=== PATIENT | male | born 1960 | race Caucasian/White ===

== ENCOUNTER 2017-09-22 11:07 | Emergency (ER) | payer BC ==
[2017-09-22] MEDS ORDERED: Metoclopramide IV* 5 MG/ML 2 ML VIAL IV ONE (12:15)
[2017-09-22] MEDS ORDERED: NS 0.9% 1000 ML* 1,000 ML IV ONE (12:15)
[2017-09-22] MEDS ORDERED: diPHENhydraMINE IV* 50 MG/ML 1 ml VIAL (BENADRYL) IV ONE (12:15)
[2017-09-22] MEDS: Ketorolac INJ* 30 MG/ML 1 ML VIAL IV PUSH ONE ×2 (12:47→12:56)
[2017-09-22 13:44] VITALS: BP 153/95
--- NOTE | 2017-09-22 17:55 | ED ---
Geraldo Arenas Gabriel, scribed for Henri Irwin MD on 09/22/17 at 1215 . Headache - HPI Summary HPI Summary: This patient is a 56 year old M presenting to [facility] with a chief complaint of SWANSON since 2 weeks ago. The patient rates the pain 6/10 in severity located behind the left eye. Patient reports tearing and tingling in the right pinky. Patient denies cough, congestion, sinus pressure, nasal discharge, and pain with eye movement. Hx of migraines with the last one being 2 years ago. - History Of Current Complaint Chief Complaint: EDHeadache Stated Complaint: HEADACHE Time Seen by Provider: 09/22/17 12:05 Hx Obtained From: Patient Onset/Duration: Started weeks ago - 2, Still Present Initially Headache Was: Initial Pain Scale(0-10)= - 6 Currently Pain Is: Current Pain Scale(0-10)= - 6 Timing: Constant Location of Headache: Other: - behind left eye Associated Signs And Symptoms: Negative - cough, congestion, sinus pressure, nasal discharge, and pain with eye movement. - Allergies/Home Medications Allergies/Adverse Reactions: Allergies Allergy/AdvReac Type Severity Reaction Status Date / Time Penicillins Allergy Unknown Verified 12/04/13 13:38 Reaction Details PMH/Surg Hx/FS Hx/Imm Hx Respiratory History: Reports: Hx Sleep Apnea - evaluation for 11/2013 GI History: Reports: Hx Gastroesophageal Reflux Disease - erosive gastritis, Schatzki's ring History: Reports: Other Problems/Disorders - prostrate adenocarcinoma - claudine 6 Opthamlomology History: Denies: Hx Legally Blind Neurological History: Reports: Hx Headaches, Hx Migraine - Cancer History Cancer Type, Location and Year: prostrate adenocarcinoma - Immunization History Date of Influenza Vaccine: never Infectious Disease History: No Infectious Disease History: Denies: Traveled Outside the [place] in Last 30 Days - Family History Known Family History: Negative: Renal Disease, Respiratory Disease, Blood Disorder - Social History Lives: With Family Alcohol Use: Daily Alcohol Amount: 4-6 beers, weekends more Substance Use Type: Reports: None Smoking Status (MU): Never Smoked Tobacco Review of Systems Eyes: Negative - pain with eye movement Positive: Other - tearing ENT: Negative - sinus pressure Negative: Nasal Discharge Respiratory: Negative - congestion Negative: Cough Neurological: Other - tingling in right pinky Positive: Headache All Other Systems Reviewed And Are Negative: Yes Physical Exam - Summary Physical Exam Summary: Appearance: Well appearing, no pain distress Skin: warm, dry, reflects adequate perfusion Head/face: normal Eyes: EOMI, SILVANO ENT: Globes are soft. No pain with percussion of sinuses Neck: supple, non-tender Respiratory: CTA, breath sounds present Cardiovascular: RRR, pulses symmetrical Abdomen: non-tender, soft Bowel: present Musculoskeletal: normal, strength/ROM intact Neuro: normal, sensory motor intact, A&Ox3 Triage Information Reviewed: Yes Vital Signs On Initial Exam: Initial Vitals Temp Pulse Resp BP Pulse Ox 98.1 F 82 18 124/86 98 09/22/17 11:10 09/22/17 11:10 09/22/17 11:10 09/22/17 11:10 09/22/17 11:10 Vital Signs Reviewed: Yes Diagnostics - Vital Signs Vital Signs Temp Pulse Resp BP Pulse Ox 09/22/17 11:10 98.1 F 82 18 124/86 98 - Laboratory Lab Statement: Any lab studies that have been ordered have been reviewed, and results considered in the medical decision making process. Re-Evaluation - Re-Evaluation First Eval Re-Evaluation Time: 13:17 Change: Improved Comment: Pt's headache has resolved. Headache Course/Dx - Course Course Of Treatment: pt with recurring swanson behind L eye. No neuro sx. SWANSON gone with tx. Suggested outpt MRI and neurology consult. Referral given. Neuro intact here. No high risk features. - Diagnoses Provider Diagnoses: Chronic headaches, Cluster headache Discharge - Discharge Plan Condition: Good Disposition: HOME Prescriptions: Promethazine TAB* [Phenergan Tab*] 25 mg PO Q6H PRN #30 tab PRN Reason: headache/nausea Patient Education Materials: Cluster Headache (ED) Referrals: Ted Alejo MD [Medical Doctor] - Alfredo Seo JEWELRY ENGRAVER [Primary Care Provider] - Additional Instructions: Drink plenty of fluids. Prescribed medication can be taken with ibuprofen/ benadryl, water and caffeine if severe. Medication can be sedating. Return with fever, numbness/weakness, new symptoms, worse or other concerns as discussed. Call neurology for follow up appt. The documentation as recorded by the Geraldo rivers Gabriel accurately reflects the service I personally performed and the decisions made by me, Henri Irwin MD.
== END 2017-09-22 13:42 | disposition home or self-care (01) ==
LOC: ED 11:07
DX: G44.009 Cluster headache syndrome, unspecified, not intractable (principal); R51 Headache
CPT/HCPCS: 96374; 96375; 99283; J1200; J1885; J2765

== ENCOUNTER 2018-04-04 11:18 | Emergency (ER) | payer BC ==
--- OUTSIDE RECORDS SUMMARY | 2018-04-04 11:30 | XMS REPORT ---
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 [address] PayID: [id number] [place] [address] Problems Date Description Provider Status Onset: 09/29/2011 Migraine Myla Santiago M.D. Active Family History Date Family Member(s) Problem(s) Comments Father Cancer, Prostate Father Dementia Mother Healthy Onset: (age 49 First Brother Prostate Cancer prostatecomy Years) Second Brother Well Third Brother GERD First Sister Lupus Erythematosis Paternal Grandfather due to "Old Age" () Paternal Grandmother due to after () fractured hip Maternal Grandfather due to "Old Age" () Maternal Grandmother Healthy Maternal Grandmother due to "Old Age" () Social History Type Date Description Comments Marital Status Lives With Spouse Lives With Son 2 boys at home Lives With Daughter lives in [place] Diet Healthy, Well Balanced likes salads and fruits but tends to eat diner foods, lots of grease Smoke-Free Home is smoke-free Occupation [employer]. 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 Storm, every ACCOUNTING COORDINATOR-C night at bedtime for migrain e prevent ion Qnasl 10/06 Active Aerosol 80mcg/Act 8.700 2 J01.90 Shawnti gm sprays R. Rayray, each ACCOUNTING COORDINATOR-C nostril daily Sumatriptan 10/06 Active Tablets 100mg 14tab take 1 G44.011 Shawnti Succinate s tablet R. Rayray, by ACCOUNTING COORDINATOR-C mouth at onset of migrain e; may repeat in 1 to 2 hours if needed; max daily dose is 2 tabs Clarithromycin 09/29 Hx Tablets 500mg 20tab 1 by J01.90 Shawnti s mouth R. Storm, - twice a ACCOUNTING COORDINATOR-C 10/09 day sinusit is Fluticasone 09/29 Hx Suspensio 50mcg/Act 16gm 2 J01.90 Shawnti Propionate n sprays RGalileo Seo, - into ACCOUNTING COORDINATOR-C 10/06 nostril once daily for rhiniti s No Active 01/25 Hx Unknown Medications /2016 - 09/29 Bactrim DS 04/03 Hx Tablets 800-160mg 20tab 1 by Shawnti s mouth R. Storm, - twice a ACCOUNTING COORDINATOR-C 04/13 day infecti on Clindamycin HCL 03/09 Hx Capsules 300mg 21cap take 1 K12.2 Ah s capsule Germania - by KATHRYN 01/25 mouth ACCOUNTING COORDINATOR-C /2016 every 8 hours for 7 days Fenofibrate 01/18 Hx Tablets 54mg 30tab 1 by E78.1 Daniel s mouth Shirley huston MD 01/25 day Naltrexone HCL 01/18 Hx Tablets 50mg 30tab Take 1 R74.0 Daniel s tablet Shirley hoffman MD 01/25 mouth daily for excessi ve use of alcohol Triamcinolone 12/18 Hx Cream 0.1% 120un 1 apply Daniel Acetonide its to Shirley klein MD 01/25 d area daily Meclizine HCL 11/14 Hx Tablets 12.5mg 40tab take H81.10 s 1-2 R. Rayray, - tablets ACCOUNTING COORDINATOR-C 11/14 by mouth twice to four times a day as needed for dizzine ss/vert igo Meclizine HCL 11/14 Hx Tablets 25mg 30tab 1 H81.10 s tablet R. Rayray, - PO qid ACCOUNTING COORDINATOR-C 01/25 prn dizzine ss Clarithromycin 10/27 Hx Tablets 500mg 20tab 1 by J01.90 s mouth R. Storm, - twice a ACCOUNTING COORDINATOR-C 11/06 day sinusit is Clarithromycin 09/12 Hx Tablets 500mg 20tab 1 by J01.20 s mouth R. Storm, - twice a ACCOUNTING COORDINATOR-C 10/27 day sinusit is Sumatriptan 09/12 Hx Solution 20mg/Act 2unit one G43.119 s spray RGalileo Seo, - in one ACCOUNTING COORDINATOR-C 01/25 nostril at the onset of migrain e, repeat in 2 hours if needed, max 2 doses in 24 hours Doxycycline 06/30 Hx Tablets 100mg 2tabs [address] by Shirley oconnor MD 09/12 once Guaiatussin ac 01/28 Hx Syrup 100-10mg/5ML 150ml 1-2 tsp J06.9 po q4-6 Barbara Seo, - hr prn ACCOUNTING COORDINATOR-C 01/25 cough Prednisone 05/03 Hx Tablets 20mg QS 3 po qd 466.0 x Barbara Seo, - 2days, ACCOUNTING COORDINATOR-C 01/25 2 po qd /2013 x 2 days, 1 po qd x 2 days, 1/2 po qd x 2 days Ventolin HFA 05/03 Hx Aerosol 108(90Base) 18gm inhale 466.0 nt mcg/Act two Barbara Rayray, - puffs ACCOUNTING COORDINATOR-C 01/25 by mouth every 4 hours as needed for wheeze Azithromycin 04/17 Hx Tablets 250mg 6tabs take 2 786.50 Nereida tablets Rita, - today ACCOUNTING COORDINATOR-C 05/03 then tablet daily for the next 4 days Cipro 02/03 Hx Tablets 500mg 20tab one po s bid for Cohen, - 10 days M.D. 05/04 Amitriptyline 10/04 Hx Tablets 25mg 90tab 1 po 346.90 Shawnti HCL s qhs to Barbara Seo, - prevent ACCOUNTING COORDINATOR-C 01/25 migrain /2016 es Azithromycin 09/29 Hx Tablets 250mg 6tabs 2 po qd 461.8 x 1 K.W. - Jack ashford, 11/29 then 1 .D. 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 - latera Jack, 09/13 wall M.D. pain after contusi on. Ibuprofen 05/12 Hx Tablets 600mg 30tab one po 922.1 s tab tid K.W. - with Jack 09/29 food M.D. for 5 days two days off the 5 days No Lifting Or 05/12 Hx 2Weeks Chest 922.1 Myla Raising Left wall K.WGalileo Arm Above - contusi Jack, Shoulder 09/29 on M.D. Lamisil At 02/17 Hx Cream 1% 1unit apply 110.4 Myla Athletes Foot s bid to Zelda Santiago, 11/29 d toes M.D. /2011 Indomethacin 02/17 Hx Capsules 25mg 6caps one tab 274.00 po tid Zelda - day x 2 Jack, 09/29 days M.D. with food Propranolol 02/06 Hx Tablets 20mg 90tab 1 po Alejandra s bid Bhavna Sepulveda M.D., 09/29 R.D. Fluticasone 02/06 Hx Suspensio 50mcg/Act 1unit one Propionate n s spray Zelda - ramona Santiago, 01/25 nostril M.D. bid O2 Via 10/13 Hx 8-10Liter Use for Echo Non-Rebreather Per Min 5-10 A. Mask - mins Tayo, 09/29 at a [facility].N.P.C. time for cluster headach es Verapamil HCL 10/08 Hx Tablets 80mg 90tab 1 po 784.0 Echo s tid A. - Tayo, 09/29 [facility].N.P.C. Sumatriptan 10/02 Hx Tablets 100mg 30tab 1 at R51 Shawnti Succinate s onset Barbara Seo, - of ACCOUNTING COORDINATOR-C 01/25 headach /2016 e, may repeat in 1 hour. mmd is 2 in 24 hours. Topamax 07/24 Hx Tablets 25mg 84tab 1 PO qd 346.10 Echo s For One A. - Week, Tayo, 10/04 Increas F.N.P.C. e To 3 Tabs PO qd For One Week Then 2 Tabs bid. Prilosec OTC 07/03 Hx Tablets 20mg 30tab [address] martin Santiago, 09/29 M.D. Lotrisone 09/14 Hx Cream Cream 15gm Apply 692.6 Echo /2006 To The AGalileo Cr, 09/29 d Area [facility].N.P.C. bid Triamcinolone 06/21 Hx Cream 0.1% 30Gra Apply Velma Acetonide /2006 ms qd To P. - bid To Blegen, 01/17 Poison M.D. /2007 Ana Rash For Up To 2 Weeks (Gary d) Prednisone 04/06 Hx Tablets 10mg 30QS 5 po qd Myla x 2 K.W. - days Jack, 01/17 then 4 M.D. po qd x 2 days then 3 po qd x 2 days then 2 po [id number] s then 1 po [id number] s Topamax 09/16 Hx Capsules 25mg 61cap one po 346.00 Echo /2004 s qd for A. - 5 days 01/17 then [facility].N.P.C. /2007 increas e to one cap bid for one week. third week two caps at hs and one in the daytime Migranal Nasal 09/16 Hx Solution 4mg/ml 1unit one 346.00 Echo [place] /2004 s spray A. - in each 01/17 notsril [facility].N.P.C. /2007 . may repeat in 15 mins max 4 sprays in 24 hours/8 per week Propranolol 01/05 Hx Tablets 20mg 90tab 1 po Echo s bid for A. - one 09/16 week [facility].N.P.C. /2004 then increas e to two tabs po bid. Amitriptyline 12/18 Hx Tablets 25mg 60tab one to 346.00 Echo s two A. - tabs po 09/16 at hs [facility].N.P.C. /2004 Viagra 12/18 Hx Tablets 50mg One PO 302.72 Echo 30 Mins A. - Before 01/17 Interco F.N.P.C. /2007 urse Zithromax 10/16 Hx Tablets 250mg 6tabs 2 On Day Bhavna Chapman M.D. 12/10 One qd X4 Days Robitussin A-C 10/16 Hx Syrup 4Oz 1-2 TSP Q4H prn Bhavna Chapman M.D. 12/10 Axert 08/04 Hx 12.5mg 6unit use 1 Echo s tab prn A. - headach Tayo, 01/17 e, may [facility].N.P.C. /2007 repeat in 2 hours, not more than 2 in 24hrs. Dhe 45 07/27 Hx 1mg/ml 2unit adminis 346.10 Echo /[address] at A. - first Tayo, 10/04 sign of [facility].N.P.C. /2011 migrain e. given im or sc. give one ml, may repeat every one hour for three hours.m ax weekly Syringes 3cc 07/27 Hx 12uni use as 346.00 Myla 25G 1In [place] /2001 ts directe Zelda Santiago, 01/17 M.DGalileo /2007 Immunizations CPT Code Status Date Vaccine Lot # [id number] Given 10/04/2011 Tdap (Adacel) [id number] Given 07/03/2008 Influenza Virus Vaccine, 3 Yrs And Above [id number] Given 06/03/1993 DT (Adult) [id number] Refused 01/19/2016 Influenza Virus Vaccine, Quadrivalent, 3 Yr > Quad , Preserv Free Vital Signs Date Vital Result Comment 04/04/2018 Weight 151.00 lb Weight in kg's 68.494 BP Systolic 120 mmHg BP Diastolic 80 mmHg Heart Rate 68 /min Body Temperature 98.1 F Respiratory Rate 16 /min 12/26/2017 Weight 155.00 lb Weight in kg's 70.308 BP Systolic 114 mmHg BP Diastolic 82 mmHg Heart Rate 100 /min Body Temperature 101.5 F ibuprofen am Respiratory Rate 18 /min O2 % BldC Oximetry 98 % 10/06/2017 Weight 151.00 lb Weight in kg's 68.494 BP Systolic 130 mmHg BP Diastolic 78 mmHg Heart Rate 88 /min Body Temperature 96.9 F Respiratory Rate 16 /min O2 % BldC Oximetry 98 % 09/29/2017 Weight 156.00 lb Weight in kg's 70.762 BP Systolic 128 mmHg BP Diastolic 80 mmHg Heart Rate 90 /min Body Temperature 97.5 F Respiratory Rate 16 /min O2 % BldC Oximetry 98 % 01/25/2017 Weight 147.00 lb Weight in kg's 66.679 BP Systolic 140 mmHg BP Diastolic 70 mmHg Heart Rate 107 /min Body Temperature 98.7 F Respiratory Rate 16 /min Height 70.5 inches 5'10.50" BMI (Body Mass Index) 20.8 kg/m2 O2 % BldC Oximetry 98 % 09/23/2016 Weight 149.00 lb Weight in kg's 67.586 BP Systolic 100 mmHg BP Diastolic 78 mmHg Heart Rate 108 /min Body Temperature 98.2 F Ibuprofen at 10am Respiratory Rate 16 /min O2 % BldC Oximetry 99 % 03/09/2016 Weight 149.00 lb Weight in kg's 67.586 BP Systolic 124 mmHg BP Diastolic 86 mmHg Heart Rate 104 /min Body Temperature 98.7 F 01/19/2016 Weight 153.00 lb Weight in kg's 69.401 BP Systolic 130 mmHg BP Diastolic 88 mmHg Heart Rate 76 /min 12/19/2015 Weight 155.00 lb Weight in kg's 70.308 BP Systolic 136 mmHg BP Diastolic 90 mmHg Heart Rate 84 /min Body Temperature 99.2 F 11/14/2015 Weight 151.00 lb Weight in kg's 68.494 BP Systolic 160 mmHg BP Diastolic 100 mmHg Heart Rate 99 /min Body Temperature 97.6 F O2 % BldC Oximetry 98 % 10/27/2015 Weight 155.00 lb Weight in kg's 70.308 BP Systolic 141 mmHg BP Diastolic 92 mmHg Heart Rate 88 /min Body Temperature 97.7 F O2 % BldC Oximetry 98 % 09/12/2015 Weight 154.00 lb Weight in kg's 69.854 BP Systolic 140 mmHg BP Diastolic 90 mmHg Heart Rate 80 /min Body Temperature 98.1 F O2 % BldC Oximetry 98 % 06/30/2015 Weight 152.00 lb Weight in kg's 68.947 BP Systolic 140 mmHg BP Diastolic 82 mmHg Heart Rate 72 /min Body Temperature 97.5 F 01/28/2014 Weight 150.00 lb Weight in kg's 68.040 BP Systolic 130 mmHg BP Diastolic 98 mmHg Heart Rate 84 /min Body Temperature 98.9 F O2 % BldC Oximetry 99 % AT Room Air 01/25/2014 Weight 150.00 lb Weight in kg's 68.040 BP Systolic 144 mmHg BP Diastolic 90 mmHg Heart Rate 92 /min Body Temperature 98.3 F O2 % BldC Oximetry 99 % Ra 07/16/2013 Weight 152.00 lb Weight in kg's 68.947 BP Systolic 140 mmHg BP Diastolic 90 mmHg Heart Rate 100 /min 05/17/2013 Weight 150.00 lb Weight in kg's 68.040 BP Systolic 140 mmHg BP Diastolic 90 mmHg Heart Rate 92 /min 05/03/2013 Weight 149.00 lb Weight in kg's 67.586 BP Systolic 130 mmHg BP Diastolic 90 mmHg Heart Rate 76 /min Body Temperature 98.6 F O2 % BldC Oximetry 99 % level at rest 04/17/2013 Weight 147.00 lb Weight in kg's 66.679 BP Systolic 126 mmHg BP Diastolic 82 mmHg Heart Rate 77 /min Body Temperature 98.0 F Height 72 inches 6'0" BMI (Body Mass Index) 19.9 kg/m2 O2 % BldC Oximetry 99 % 02/04/2012 Weight 159.00 lb Weight in kg's 72.122 BP Systolic 120 mmHg BP Diastolic 92 mmHg Heart Rate 80 /min 11/30/2011 Weight 155.00 lb Weight in kg's 70.308 BP Systolic 124 mmHg BP Diastolic 90 mmHg Heart Rate 96 /min Body Temperature 97.3 F Height 72 inches 6'0" BMI (Body Mass Index) 21.0 kg/m2 11/04/2011 Weight 161.00 lb Weight in kg's 73.030 BP Systolic 138 mmHg BP Diastolic 80 mmHg Heart Rate 84 /min Body Temperature 99.6 F 10/04/2011 Weight 158.00 lb Weight in kg's 71.669 BP Systolic 120 mmHg BP Diastolic 80 mmHg Heart Rate 88 /min Height 71.50 inches 5'11.50" BMI (Body Mass Index) 21.7 kg/m2 09/29/2011 Weight 159.00 lb Weight in kg's 72.122 BP Systolic 120 mmHg BP Diastolic 80 mmHg Heart Rate 84 /min Body Temperature 98.7 F 08/23/2011 Weight 160.00 lb Weight in kg's 72.576 BP Systolic 122 mmHg BP Diastolic 82 mmHg Heart Rate 64 /min Last Menstrual Period 0 O2 % BldC Oximetry 98 % 05/12/2010 Weight 164.00 lb Weight in kg's 74.390 BP Systolic 140 mmHg BP Diastolic 90 mmHg Heart Rate 72 /min Body Temperature 97.6 F 02/17/2010 Weight 163.00 lb Weight in kg's 73.937 BP Systolic 140 mmHg BP Diastolic 94 mmHg Heart Rate 60 /min Body Temperature 98.5 F 02/06/2010 Weight 162.00 lb Weight in kg's 73.483 BP Systolic 148 mmHg BP Diastolic 98 mmHg Heart Rate 76 /min Height 71.50 inches 5'11.50" BMI (Body Mass Index) 22.3 kg/m2 O2 % BldC Oximetry 99 % 10/08/2009 Weight 161.00 lb Weight in kg's 73.030 BP Systolic 118 mmHg BP Diastolic 84 mmHg Heart Rate 80 /min 10/02/2009 Weight 160.00 lb Weight in kg's 72.576 BP Systolic 142 mmHg BP Diastolic 90 mmHg Heart Rate 68 /min 03/05/2009 Weight 165.00 lb Weight in kg's 74.844 BP Systolic 140 mmHg BP Diastolic 100 mmHg Heart Rate 68 /min 07/24/2008 Weight 161.00 lb Weight in kg's 73.030 BP Systolic 118 mmHg BP Diastolic 80 mmHg Heart Rate 72 /min Body Temperature 96.9 F Height 72 inches 6'0" BMI (Body Mass Index) 21.8 kg/m2 07/08/2008 Weight 164.00 lb Weight in kg's 74.390 BP Systolic 110 mmHg BP Diastolic 68 mmHg Heart Rate 76 /min Height 72 inches 6'0" BMI (Body Mass Index) 22.2 kg/m2 06/17/2008 BP Systolic 120 mmHg BP Diastolic 60 mmHg Heart Rate 72 /min Body Temperature 98.0 F oral Height 72 inches 6'0" 02/26/2008 Weight 164.00 lb Weight in kg's 74.390 BP Systolic 120 mmHg BP Diastolic 60 mmHg Heart Rate 72 /min Height 72 inches 6'0" BMI (Body Mass Index) 22.2 kg/m2 01/18/2008 Weight 166.00 lb Weight in kg's 75.298 BP Systolic 132 mmHg BP Diastolic 84 mmHg Heart Rate 76 /min Height 72 inches 6'0" BMI (Body Mass Index) 22.5 kg/m2 01/16/2008 Weight 166.00 lb Weight in kg's 75.298 BP Systolic 138 mmHg BP Diastolic 70 mmHg Heart Rate 76 /min Body Temperature 97.2 F Height 72 inches 6'0" BMI (Body Mass Index) 22.5 kg/m2 09/14/2007 Weight 166.00 lb Weight in kg's 75.298 BP Systolic 139 mmHg BP Diastolic 82 mmHg Heart Rate 64 /min Height 72 inches 6'0" BMI (Body Mass Index) 22.5 kg/m2 04/06/2007 Weight 163.00 lb Weight in kg's 73.937 BP Systolic 130 mmHg BP Diastolic 68 mmHg Heart Rate 72 /min Height 72 inches 6'0" BMI (Body Mass Index) 22.1 kg/m2 10/13/2006 Weight 160.00 lb Weight in kg's 72.576 BP Systolic 130 mmHg BP Diastolic 72 mmHg Heart Rate 68 /min Height 72 inches 6'0" BMI (Body Mass Index) 21.7 kg/m2 10/04/2005 Weight 157.00 lb Weight in kg's 71.215 BP Systolic 140 mmHg BP Diastolic 100 mmHg Heart Rate 76 /min Respiratory Rate 18 /min Height 72 inches 6'0" BMI (Body Mass Index) 21.3 kg/m2 09/16/2005 Weight 156.00 lb Weight in kg's 70.762 BP Systolic 106 mmHg BP Diastolic 74 mmHg Body Temperature 98.2 F 12/19/2003 Weight 167.00 lb Weight in kg's 75.751 BP Systolic 136 mmHg BP Diastolic 84 mmHg Heart Rate 82 /min Body Temperature 96.8 F 12/09/2003 Weight 165.00 lb Weight in kg's 74.844 BP Systolic 140 mmHg BP Diastolic 82 mmHg Heart Rate 88 /min 11/18/2003 Weight 166.00 lb Weight in kg's 75.298 BP Systolic 140 mmHg BP Diastolic 82 mmHg Body Temperature 97.1 F 12/17/2002 Weight 159.00 lb Weight in kg's 72.122 BP Systolic 120 mmHg BP Diastolic 80 mmHg Heart Rate 78 /min Respiratory Rate 18 /min Height 72 inches BMI (Body Mass Index) 21.6 kg/m2 10/16/2002 Weight 158.00 lb Weight in kg's 71.7 BP Systolic 120 mmHg BP Diastolic 70 mmHg Body Temperature 97.6 F 07/27/2002 Weight 160.00 lb Weight in kg's 72.6 BP Systolic 130 mmHg BP Diastolic 80 mmHg Heart Rate 72 /min Results Test Date Test Result H/L Range Note Laboratory test 12/26/2017 Flu PCR Flu B--Positive Flu finding A--Negative CBC Auto Diff 01/25/2017 White Blood 9.3 10^3/uL 3.5-10.8 Count Red Blood Count 4.63 10^6/uL 4.0-5.4 Hemoglobin 15.3 g/dL 14.0-18.0 Hematocrit 45 % 42-52 Mean Corpuscular Volume 98 fL High 80-94 Mean Corpuscular Hemoglobin 33 pg High 27-31 Mean Corpuscular HGB Conc 34 g/dL 31-36 Red Cell Distribution Width 13 % 10.5-15 Platelet Count 332 10^3/uL 150-450 Mean Platelet Volume 8 um3 7.4-10.4 Abs Neutrophils 5.3 10^3/uL 1.5-7.7 Abs Lymphocytes 2.9 10^3/uL 1.0-4.8 Abs Monocytes 0.8 10^3/uL 0-0.8 Abs Eosinophils 0.2 10^3/uL 0-0.6 Abs Basophils 0.1 10^3/uL 0-0.2 Abs Nucleated RBC 0 10^3/uL Granulocyte % 57.6 % 38-83 Lymphocyte % 31.7 % 25-47 Monocyte % 8.2 % 1-9 Eosinophil % 1.7 % 0-6 Basophil % 0.8 % 0-2 Nucleated Red Blood Cells % 0.1 Comp Metabolic Panel 01/25/2017 Sodium 135 mmol/L 133-145 Potassium 4.0 mmol/L 3.5-5.0 Chloride 102 mmol/L 101-111 Co2 Carbon Dioxide 23 mmol/L 22-32 Anion Gap 10 mmol/L 2-11 Glucose 114 mg/dL High 70-100 Blood Urea Nitrogen 11 mg/dL 6-24 Creatinine 0.95 mg/dL 0.67-1.17 BUN/Creatinine Ratio 11.6 8-20 Calcium 9.3 mg/dL 8.6-10.3 Total Protein 7.2 g/dL 6.4-8.9 Albumin 4.3 g/dL 3.2-5.2 Globulin 2.9 g/dL 2-4 Albumin/Globulin Ratio 1.5 1-3 Total Bilirubin 1.10 mg/dL High 0.2-1.0 Alkaline Phosphatase 52 U/L 34-104 Alt 27 U/L 7-52 Ast 32 U/L 13-39 Egfr Non- 82.0 >60 Egfr 105.5 >60 1 Lipid Profile (Trig/Chol/HDL) 01/25/2017 Triglycerides 311 mg/dL 2 Cholesterol 219 mg/dL 3 HDL Cholesterol 60.8 mg/dL 4 LDL Cholesterol 96 mg/dL 5 Laboratory test finding 01/25/2017 Hepatitis C Antibody Nonreactive Nonreactive 6 PSA Screening 0.019 ng/mL 0-4.000 7 Flu Test A, B, Or A & B,Binaxn 09/23/2016 Influenza A Antigen <pending> Influenza B Antigen <pending> Lipid Profile (Trig/Chol/HDL) 02/09/2016 Triglycerides 389 mg/dL 8 Cholesterol 241 mg/dL 9 HDL Cholesterol 60.8 mg/dL 10 LDL Cholesterol 102 mg/dL 11 Comp Metabolic Panel 02/09/2016 Sodium 138 mmol/L 133-145 Potassium 4.8 mmol/L 3.5-5.0 Chloride 103 mmol/L 101-111 Co2 Carbon Dioxide 26 mmol/L 22-32 Anion Gap 9 mmol/L 2-11 Glucose 110 mg/dL High 70-100 Blood Urea Nitrogen 11 mg/dL 6-24 Creatinine 1.17 mg/dL 0.67-1.17 BUN/Creatinine Ratio 9.4 8-20 Calcium 9.8 mg/dL 8.6-10.3 Total Protein 7.6 g/dL 6.4-8.9 Albumin 4.6 g/dL 3.2-5.2 Globulin 3.0 g/dL 2-4 Albumin/Globulin Ratio 1.5 1-3 Total Bilirubin 0.50 mg/dL 0.2-1.0 Alkaline Phosphatase 48 U/L 34-104 Alt 43 U/L 7-52 Ast 50 U/L High 13-39 Egfr Non- 64.7 >60 Egfr 83.2 >60 12 Laboratory test finding 02/09/2016 GGTP 204 U/L High 9-64.0 13 Laboratory test finding 07/16/2013 PSA Diagnostic < 0.008 ng/mL 0-4.000 14 Surgical Pathology 01/31/2013 S RUN DATE: <SEE NOTE> Urine Culture & Sensitivi 02/04/2012 M 16 <SEE NOTE> Urine DIP 02/04/2012 Leukocytes NEG Neg Urine Nitrites NEG Neg Urine pH 5 5-6 Total Protein, Urine NEG Neg Urine Glucose NORM Norm Urine Ketones NEG Neg Urobilinogen NORM Norm Urine Bilirubin NEG Neg Urine Blood NEG Neg Specific [place] N/A Low 1.01-1.02 CBC Auto Diff 11/30/2011 White Blood Count 6.1 CUMM 4.8-10.8 17 Red Cell Count 4.29 CUMM Low 4.6-6.2 17 Hemoglobin 14.3 g/dL 14.0-18.0 17 Hematocrit 40 % Low 42-52 17 Mean Corpuscular Volume 93 um3 80-94 17 Mean Corpuscular Hemoglob 33 pg High 27-31 17 Mean Corpuscular HGB Cone 36 g/dL 32-36 17 Redcell Distribution WDTH 14 % 10.5-15 17 Platelet Count 297 CUMM 150-450 17 Mean Platelet Volume 8.4 um3 7.4-10.4 17 Gran % 46.7 % 38-83 17 Lymph % 39.6 % 25-47 17 Mononuclear % 8.4 % 1-9 17 Eosinophil % 4.7 % 0-6 17 Basophil % 0.6 % 0-2 17 Abs Lymphs 2.4 1.0-4.8 17 Abs Mononuclear 0.5 0-0.8 17 Absolute Neutrophil Count 2.9 1.5-7.7 17 Abs Eosinophils 0.3 0-0.6 17 Abs Basophils 0 0-0.2 17 Comp Metabolic Panel 11/30/2011 Sodium 137 mmol/L 135-145 17 Potassium 4.8 mmol/L 3.5-5.0 17 Chloride 103 mmol/L 101-111 17 Co2 (Carbon Dioxide) 24.0 mmol/L 22-32 17 Anion Gap 10.0 mmol/L 2-11 17, 18 Glucose 83 mg/dL 70-100 17 BUN 16 mg/dL 6-24 17 Creatinine 1.1 mg/dL 0.50-1.40 17 One Over Creatinine 0.90 17 BUN/Creatinine Ratio 14.5 8-20 17 Calcium 9.5 mg/dL 8.1-9.9 17 Total Protein 6.9 GM/DL 6.2-8.1 17 Albumin 3.7 GM/DL 3.6-5.4 17 Globulin 3.2 GM/DL 2-4 17 Albumin/Globulin Ratio 1.2 1-3 17 Bilirubin Total 0.9 mg/dL 0.4-1.5 17, 19 Alkaline Phosphatase 40 U/L 39-117 17 Alt (SGPT) 26 U/L 17-63 17 Ast (Sgot) 32 U/L 12-42 17 eGFR Non- 70.6 > 60 17 eGFR 90.8 > 60 17, 20 Urine DIP 11/30/2011 Leukocytes NEG Neg Urine Nitrites NEG Neg Urine pH 6 5-6 Total Protein, Urine TRACE Neg Urine Glucose NORM Norm Urine Ketones NEG Neg Urobilinogen NORM Norm Urine Bilirubin NEG Neg Urine Blood NEG Neg Specific [place] NA Low 1.01-1.02 Urinalysis W/Microscopic 11/30/2011 Ua Color YELLOW Yellow Appearance-Urine TURBID Clear Specific [place]-Ur 1.021 1.010-1.030 Esterase-Urine NEGATIVE Negative Nitrite NEGATIVE Negative [id number] NEGATIVE Negative Protein-Urine NEGATIVE Negative PH-Urine 6.0 5-9 Blood-Urine NEGATIVE Negative Ketones-Urine NEGATIVE Negative Bilirubin-Ur NEGATIVE Negative Glucose-Urine NEGATIVE Negative WBC-Urine 0-2 0-5 RBC-Urine NONE SEEN 0-2 Epith Cells-Ur FEW None Amorphous Sed-U 2+ None PT W/Inr 11/30/2011 Inr 0.98 0.88-1.13 17, 21 Protime 11.5 SEC 10.3-13.5 17, 22 Urine Culture 11/30/2011 M <SEE 23 Sensitivi NOTE> Surgical Pathology 11/02/2011 Surgical <SEE 24 Pathology NOTE> Laboratory test 10/04/2011 Glucose 101 mg/dL High 70-100 finding Hemoglobin A1c 5.7 % Less Than 6.0 25 Urine DIP 10/04/2011 Leukocytes NEG Neg Urine Nitrites NEG Neg Urine pH 5 5-6 Total Protein, Urine NEG Neg Urine Glucose NORM Norm Urine Ketones NEG Neg Urobilinogen NORM Norm Urine Bilirubin NEG Neg Urine Blood NEG Neg Specific [place] N/A Low 1.01-1.02 Basic Metabolic Panel 09/28/2011 Sodium 134 mmol/L Low 135-145 Potassium 5.0 mmol/L 3.5-5.0 Chloride 98 mmol/L Low 101-111 Co2 (Carbon Dioxide) 25.0 mmol/L 22-32 Anion Gap 11.0 mmol/L 2-11 26 Glucose 150 mg/dL High 70-100 BUN 9 mg/dL 6-24 Creatinine 1.1 mg/dL 0.50-1.40 One Over Creatinine 0.90 BUN/Creatinine Ratio 8.2 8-20 Calcium 9.5 mg/dL 8.1-9.9 eGFR Non- 70.9 > 60 eGFR 91.1 > 60 27 CBC With Electronic Diff 09/28/2011 White Blood Count 8.9 CUMM 4.8-10.8 Red Cell Count 5.06 CUMM 4.6-6.2 Hemoglobin 16.3 g/dL 14.0-18.0 Hematocrit 47 % 42-52 Mean Corpuscular Volume 94 um3 80-94 Mean Corpuscular Hemoglob 32 pg High 27-31 Mean Corpuscular HGB Cone 34 g/dL 32-36 Redcell Distribution WDTH 13 % 10.5-15 Platelet Count 285 CUMM 150-450 Mean Platelet Volume 8.3 um3 7.4-10.4 Laboratory test finding 09/28/2011 TSH 2.05 MIU/ML 0.34-5.60 Manual Differential 09/28/2011 Polysegmented Neutrophil 48 % 38-83 Band Neutrophil 1 % 0-8 Lymphocyte 33 % 25-47 Monocyte 8 % 0-13 Eosinophil 7 % High 0-6 Basophil 2 % 0-2 Atypical Lymph 1 % 0-6 Absolute Neutrophil Count 4.3 Anisocytosis SLIGHT Laboratory test finding 09/28/2011 PSA,Diagnostic 3.55 NG/ML 0-4 28 Lipid Profile (Trig/Chol/HDL) 09/28/2011 Triglyceride 478 mg/dL High 40- 200 Cholesterol 288 mg/dL High Less Than 200 29 High Density Lipoprotein 55 mg/dL 40-60 30 Cholesterol/HDL Ratio 5.24 AVERAGE High 1-4.97 Low Density Lipoprotein (SEE NOTE) mg/dL Less Than 100 31 Urine DIP 02/06/2010 Leukocytes neg Neg Urine Nitrites neg Neg Urine pH 5 5-6 Total Protein, Urine neg Neg Urine Glucose norm Norm Urine Ketones neg Neg Urobilinogen norm Norm Urine Bilirubin neg Neg Urine Blood neg Neg Specific [place] n/a Low 1.01-1.02 Laboratory test 02/07/2008 Clotest N^NEGATIVE^MARY ELLEN finding Surgical Pathology 02/07/2008 Surgical Pathology <SEE 32 NOTE> Lipid Profile 01/23/2008 Cholesterol/HDL 4.94 AVERAGE 1-4.97 (Trig/Chol/HDL) Ratio Cholesterol 262 mg/dL High Less Than 200 33 Triglyceride 516 mg/dL High 40-200 High Density Lipoprotein 53 mg/dL 40-60 34 Comp Metabolic Panel 01/23/2008 One Over Creatinine 0.83 Anion Gap 8.0 mmol/L 2-11 35 Albumin/Globulin Ratio 1.3 1-3 Albumin 4.0 GM/DL 3.6-5.4 Alkaline Phosphatase 49 U/L 39-117 Alt (SGPT) 27 U/L 17-63 Ast (Sgot) 30 U/L 12-42 BUN 13 mg/dL 6-24 Calcium 9.2 mg/dL 8.7-10.2 Chloride 105 mmol/L 101-111 Co2 (Carbon Dioxide) 25.0 mmol/L 22-32 Globulin 3.0 GM/DL 2-4 Glucose 83 mg/dL 70-105 Potassium 4.7 mmol/L 3.5-5.0 Sodium 138 mmol/L 135-145 Bilirubin Total 0.9 mg/dL 0.4-1.5 Total Protein 7.0 GM/DL 6.2-8.1 BUN/Creatinine Ratio 10.8 8-20 Creatinine 1.2 mg/dL 0.5-1.4 Laboratory test finding 01/23/2008 PSA Screening 2.29 NG/ML 0-4 36 Urine DIP 01/18/2008 Leukocytes NEG Neg Urine Nitrites NEG Neg Urine pH 5 5-6 Total Protein, Urine NEG Neg Urine Glucose NORM Norm Urine Ketones NEG Neg Urobilinogen NORM Norm Urine Bilirubin NEG Neg Urine Blood NEG Neg Specific [place] NORM Low 1.01-1.02 CBC With Electronic Diff 01/16/2008 White Blood Count 9.3 CUMM 4.8-10.8 Abs Basophils 0.1 0-0.2 Abs Eosinophils 0.4 0-0.6 Absolute Neutrophil Count 5.3 1.5-7.7 Abs Lymphs 2.9 1.0-4.8 Abs Mononuclear 0.7 0-0.8 Basophil % 0.7 % 0-2 Hematocrit 46 % 42-52 Hemoglobin 16.3 g/dL 14.0-18.0 Eosinophil % 3.9 % 0-6 Gran % 56.7 % 38-83 Lymph % 31.4 % 20-45 Mean Corpuscular HGB Cone 35 g/dL 32-36 Mean Corpuscular Hemoglob 32 pg High 27-31 Mean Corpuscular Volume 90 um3 80-94 Mean Platelet Volume 8.0 um3 7.4-10.4 Mononuclear % 7.3 % 1-9 Platelet Count 376 CUMM 150-450 Red Cell Count 5.12 CUMM 4.6-6.2 Redcell Distribution WDTH 13 % 10.5-15 Renal Function Panel 01/16/2008 Albumin 4.3 GM/DL 3.6-5.4 BUN 13 mg/dL 6-24 Calcium 9.1 mg/dL 8.7-10.2 Chloride 107 mmol/L 101-111 Co2 (Carbon Dioxide) 24.0 mmol/L 22-32 Glucose 92 mg/dL 70-105 Potassium 4.4 mmol/L 3.5-5.0 Sodium 139 mmol/L 135-145 Phosphorus 3.3 mg/dL 2.4-4.7 BUN/Creatinine Ratio 10.8 8-20 Creatinine 1.2 mg/dL 0.5-1.4 CBC With Electronic Diff 10/13/2006 White Blood Count 10.2 CUMM 4.8-10.8 Abs Basophils 0.1 0-0.2 Abs Eosinophils 0.2 0-0.6 Absolute Neutrophil Count 5.6 1.5-7.7 Abs Lymphs 3.5 1.0-4.8 Abs Mononuclear 0.8 0-0.8 Basophil % 0.7 % 0-2 Hematocrit 44 % 42-52 Hemoglobin 15.1 g/dL 14.0-18.0 Eosinophil % 2.2 % 0-6 Gran % 54.8 % 38-83 Lymph % 34.5 % 20-45 Mean Corpuscular HGB Cone 35 g/dL 32-36 Mean Corpuscular Hemoglob 32 pg High 27-31 Mean Corpuscular Volume 91 um3 80-94 Mean Platelet Volume 8.0 um3 7.4-10.4 Mononuclear % 7.8 % 1-9 Platelet Count 372 CUMM 150-450 Red Cell Count 4.76 CUMM 4.6-6.2 Redcell Distribution WDTH 13 % 10.5-15 Laboratory test finding 10/13/2006 Erythrocyte Sed Rate 1 MM/HR 0-15 Uric Acid 7.2 mg/dL 2.6-7.2 Urine DIP 10/04/2005 Leukocytes NEG Neg Urine Nitrites NEG Neg Urine pH 5 5-6 Total Protein, Urine NL Neg Urine Glucose NL Norm Urine Ketones NL Neg Urobilinogen NL Norm Urine Bilirubin NL Neg Urine Blood NL Neg Specific [place] N/A Low 1.01-1.02 Lipid Profile 09/30/2005 Cholesterol/HDL Ratio 4.15 AVERAGE 1-4.97 (Trig/Chol/HDL) Cholesterol 216 mg/dL High Less Than 200 37 Triglyceride 230 mg/dL High 40-200 High Density Lipoprotein 52 mg/dL 40-60 Low Density Lipoprotein 118 mg/dL High Less Than 100 38 Lipid Profile 12/10/2003 Cholesterol/HDL Ratio 5.91 AVERAGE High 1-4.97 (Trig/Chol/HDL) Cholesterol 278 mg/dL High Less Than 200 39 Triglyceride 555 mg/dL High 40-200 High Density Lipoprotein 47 mg/dL 40-60 Low Density Lipoprotein 120 mg/dL High Less Than 100 40 Comp Metabolic Panel 12/10/2003 Anion Gap 11.0 mmol/L 2-11 41 Albumin/Globulin Ratio 1.4 1-3 Albumin 4.6 GM/DL 3.6-5.4 BUN 13 mg/dL 6-24 Calcium 9.6 mg/dL 8.7-10.2 Chloride 103 mmol/L 101-111 Co2 (Carbon Dioxide) 24.0 mmol/L 22-32 Creatinine 1.4 mg/dL 0.5-1.4 Globulin 3.2 GM/DL 2-4 Glucose 92 mg/dL 70-105 Potassium 4.7 mmol/L 3.5-5.0 Sodium 138 mmol/L 135-145 Total Protein 7.8 GM/DL 6.2-8.1 BUN/Creatinine Ratio 9.3 8-20 Alkaline Phosphatase 49 U/L 39-117 Alt (SGPT) 22 U/L 17-63 Ast (Sgot) 23 U/L 12-42 Bilirubin Total 0.7 mg/dL 0.4-1.5 Testosterone Free & Total 12/10/2003 Testosterone,Free 2.72 ng/dL 0.95- 4.30 42 Testosterone % Free 0.42 % 0.33-0.48 43 Testosterone 640 ng/dL 241-827 CBC With Electronic Diff 12/10/2003 Platelet Count 334 CUMM 150-450 White Blood Count 8.3 CUMM 4.8-10.8 Abs Basophils 0.1 0-0.2 Abs Eosinophils 0.6 0-0.6 Abs Grans 3.9 1.5-7.7 Abs Lymphs 3.1 1.0-4.8 Abs Mononuclear 0.6 0-0.8 Basophil % 1.3 % 0-2 Hematocrit 45 % 42-52 Hemoglobin 16.1 g/dL 14.0-18.0 Eosinophil % 6.9 % High 0-6 Gran % 47.3 % 38-83 Lymph % 37.3 % 20-45 Mean Corpuscular HGB Cone 36 g/dL 32-36 Mean Corpuscular Hemoglob 33 pg High 27-31 Mean Corpuscular Volume 92 um3 80-94 Mean Platelet Volume 8.1 um3 7.4-10.4 Mononuclear % 7.2 % 1-9 Red Cell Count 4.89 CUMM 4.6-6.2 Redcell Distribution WDTH 13 % 10.5-15 Urine DIP 12/17/2002 Leukocytes NEG Neg Urine Nitrites NEG Neg Urine pH 5 5-6 Total Protein, Urine NL Neg Urine Glucose NL Norm Urine Ketones NL Neg Urobolinogen NL Norm Urine Bilirubin NL Neg Urine Blood NL Neg Specific [place] N/A Low 1.01-1.02 CBC With Electronic Diff 12/10/2002 Platelet Count 329 CUMM 150-450 White Blood Count 7.1 CUMM 4.8-10.8 Abs Basophils 0 0-0.2 Abs Eosinophils 0.4 0-0.6 Abs Grans 3.6 1.5-7.7 Abs Lymphs 2.6 1.0-4.8 Abs Mononuclear 0.5 0-0.8 Basophil % 0.2 % 0-2 Hematocrit 44 % 42-52 Hemoglobin 15.4 g/dL 14.0-18.0 Eosinophil % 5.0 % 0-6 Gran % 51.1 % 38-83 Lymph % 36.0 % 20-45 Mean Corpuscular HGB Cone 36 g/dL 32-36 Mean Corpuscular Hemoglob 32 pg High 27-31 Mean Corpuscular Volume 91 um3 80-94 Mean Platelet Volume 7.9 um3 7.4-10.4 Mononuclear % 7.7 % 1-9 Red Cell Count 4.79 CUMM 4.6-6.2 Redcell Distribution WDTH 12 % 10.5-15 Comp Metabolic Panel 12/10/2002 Albumin/Globulin Ratio 1.4 1-3 Albumin 4.0 GM/DL 3.6-5.4 Alkaline Phosphatase 46 U/L 39-117 Alt (SGPT) 24 U/L 17-63 Ast (Sgot) 25 U/L 12-42 BUN 10 mg/dL 6-24 Calcium 9.7 mg/dL 8.7-10.2 Chloride 105 mmol/L 101-111 Co2 (Carbon Dioxide) 26.0 mmol/L 22-32 Creatinine 1.3 mg/dL 0.5-1.4 Globulin 2.9 GM/DL 2-4 Glucose 124 mg/dL High 70-105 Potassium 4.2 mmol/L 3.5-5.0 Sodium 138 mmol/L 135-145 Bilirubin Total 1.0 mg/dL 0.4-1.5 Total Protein 6.9 GM/DL 6.2-8.1 BUN/Creatinine Ratio 7.7 Low 8-20 Lipid Profile 12/10/2002 Cholesterol/HDL Ratio 5.20 AVERAGE High 1-4.97 (Trig/Chol/HDL) Cholesterol 265 mg/dL High Less Than 200 44 Triglyceride 328 mg/dL High 40-200 High Density Lipoprotein 51 mg/dL 40-60 Low Density Lipoprotein 148 mg/dL High Less Than 100 45 1 Because ethnic data is not always readily available, this report includes an eGFR for both -Americans and non- Americans. The National Kidney Disease Education Program (NKDEP) does not endorse the use of the MDRD equation for patients that are not between the ages of 18 and 70, are , have extremes of body size, muscle mass, or nutritional status, or are non- or non-. According to the National Kidney Foundation, irrespective of diagnosis, the stage of the disease is based on the level of kidney function: Stage Description GFR(mL/min/1.73 m(2)) 1 Kidney damage with normal or decreased GFR 90 2 Kidney damage with mild decrease in GFR 60-89 3 Moderate decrease in GFR 30-59 4 Severe decrease in GFR 15-29 5 Kidney failure <15 (or dialysis) 2 Desirable <150 Borderline high 150-199 High 200-499 Very High >500 3 Desirable <200 Borderline high 200-239 High >239 4 Low <40 Desirable: 40-60 High: >60 5 Desirable: <100 mg/dL Near Optimal: 100-129 mg/dL Borderline High: 130-159 mg/dL High: 160-189 mg/dL Very High: >189 mg/dL 6 [id number] Serum levels of PSA measured using the [employer] DXI Hybritech immunoassay should not be interpreted as absolute evidence of the presence or absence of disease. The PSA value should be used in conjunction with other pertinent clinical diagnostic procedures. A PSA value in the range of 0.1 to 0.6 ng/ml is indeterminate if being used as an indicator of recurrent or residual disease. The values obtained with different assay methods or kits cannot be used interchangeably. 8 Desirable <150 Borderline high 150-199 High 200-499 Very High >500 9 Desirable <200 Borderline high 200-239 High >239 10 Low <40 Desirable: 40-60 High: >60 11 Desirable: <100 mg/dL Near Optimal: 100-129 mg/dL Borderline High: 130-159 mg/dL High: 160-189 mg/dL Very High: >189 mg/dL 12 Because ethnic data is not always readily available, this report includes an eGFR for both -Americans and non- Americans. The National Kidney Disease Education Program (NKDEP) does not endorse the use of the MDRD equation for patients that are not between the ages of 18 and 70, are , have extremes of body size, muscle mass, or nutritional status, or are non- or non-. According to the National Kidney Foundation, irrespective of diagnosis, the stage of the disease is based on the level of kidney function: Stage Description GFR(mL/min/1.73 m(2)) 1 Kidney damage with normal or decreased GFR 90 2 Kidney damage with mild decrease in GFR 60-89 3 Moderate decrease in GFR 30-59 4 Severe decrease in GFR 15-29 5 Kidney failure <15 (or dialysis) 13 FASTING 12 HOUR [id number] 14 Serum levels of PSA measured using the [employer] [place] DXI Hybritech immunoassay should not be interpreted as absolute evidence of the presence or absence of disease. The PSA value should be used in conjunction with other pertinent clinical diagnostic procedures. A PSA value in the range of 0.1 to 0.6 ng/ml is indeterminate if being used as an indicator of recurrent or residual disease. The values obtained with different assay methods or kits cannot be used interchangeably. 15 RUN DATE: 02/02/13 [facility] LAB LIVE PAGE 1 RUN TIME: [address] [place] [address] Specimen Inquiry Name: BHAVIN GALLEGOS : [address]: Maxime Atkins MD Acct: [id number] Unit: [id number] AGE: 52 Location: ENDO Re01/31/13 SEX: M Status: REG REF SPEC: [id number] YULIET: 01/31/13- SUBM DR: Maxime Atkins MD REQ: [id number] RECD: 01/31/13 STATUS: LUCY COLIN DR: Myla Santiago MD _ ORDERED: LEVEL IV FINAL DIAGNOSIS Colon, hepatic flexure, biopsy: A. Tubular adenoma. B. No high grade dysplasia or malignancy. CLINICAL HISTORY Gastroesophageal reflux disease, dysphagia, history of colon polyps POST-OPERATIVE DIAGNOSIS Schatzki's ring, dilated with 15 mm. balloon, erosive esophagitis, hiatal hernia, 2 small colon polyps removed GROSS DESCRIPTION The specimen is received in formalin labeled Bhavin Gallegos, Biopsy Polyp at Hepatic Flexure, and consists of multiple crawford, soft tissue fragments measuring 0.7 x 0.3 x 0.2 cm. Submitted entirely, one cassette. Signed (signature on file) Harsha Birmingham MD 1544 END OF REPORT * ML=Testing performed at Main Lab DEPARTMENT OF PATHOLOGY, [address] [place] [address] Harsha Birmingham M.D. Director [facility] Permit #[id number] RUN DATE: 02/06/12 [facility] [place] NMI LIVE PAGE 1 RUN TIME: 822 Specimen Inquiry RUN USER: INTERFACE Name: BHAVIN GALLEGOS Status: REG REF Re02/04/12 Age/Sex: 51/M Unit#: [id number] Location: [facility] : 60 SPEC #: [id number] YULIET: 02/04/12 STATUS: COMP REQ #: [id number] RECD: 02/04/[address]: Bob Cohen MD SOURCE: URINE ENTR: 02/04/[address]: FIDELIA MOYA MD [facility]: ORDERED: URINE C S COMMENTS: FAX RESULTS TO DR FIDELIA MOYA AT FAX NUMBER [phone] QUERIES: MEDENT REQUISITION # [id number] SPECIMEN DESCRIPTION: URINE, CLEAN CATCH ACT WKST: UR 02/06/12 #1 Procedure Result Verified Site > URINE CULTURE SENSITIVI Final 02/06/12- 0823 ML FINAL: NO GROWTH DAY 2 (<1,000 CFU/mL) ML - [facility] Permit #[id number] [address] [place] [address] DEPARTMENT OF PATHOLOGY, [address] [place] [address] [facility] Permit #[id number] Harsha Birmingham M.D. Director Jewels Michel M.D. Newspaper Publisher 17 NON FASTING 18 Anion gap measurement may be of limited value in the presence of any alkalosis, especially in a combined acid base disorder. . 19 A metabolite of Naproxen, O-desmethylnaproxen, has been shown to interfere with the [place] method for measuring total bilirubin. Samples from patients who have taken Naproxen have shown spurious elevation in total bilirubin levels. 20 Because ethnic data is not always readily available, this report includes an eGFR for both -Americans and non- Americans. The National Kidney Disease Education Program (NKDEP) does not endorse the use of the MDRD equation for patients that are not between the ages of 18 and 70, are , have extremes of body size, muscle mass, or nutritional status, or are non- or non-. According to the National Kidney Foundation, irrespective of diagnosis, the stage of the disease is based on the level of kidney function: Stage Description GFR(mL/min/1.73 m(2)) 1 Kidney damage with normal or decreased GFR 90 2 Kidney damage with mild decrease in GFR 60-89 3 Moderate decrease in GFR 30-59 4 Severe decrease in GFR 15-29 5 Kidney failure <15 (or dialysis) 21 Recommended INR for Patients on Oral Anticoagulants Prophylaxis 2.0 - 3.0 Treatment of thrombosis 2.0 - 3.0 Prevention of embolism 2.0 - 3.0 Prevention of embolism from prosthetic heart valves 2.5 - 3.5 22 DIAGNOSIS,TREATMENT,AND THERAPY MUST BE BASED ON THE INR VALUE ALONE. 23 RUN DATE: 12/08/11 [facility] [place] NMI LIVE PAGE 1 RUN TIME: 1025 Specimen Inquiry RUN USER: INTERFACE Name: BHAVIN GALLEGOS Status: REG REF Re11/30/11 Age/Sex: 51/M Unit#: [id number] Location: [facility] : 60 SPEC #: [id number] YULIET: 11/30/11 STATUS: COMP REQ #: [id number] RECD: 11/30/[address]: Alfredo Seo NP SOURCE: URINE ENTR: 11/30/11-[address]: SAMARIA: ORDERED: URINE C S COMMENTS: SPECIMEN DESCRIPTION: URINE, CLEAN CATCH QUERIES: MEDENT MEDENT REQUISITION # [id number] Procedure Result Verified Site > URINE CULTURE SENSITIVI Final 12/02/11- 1317 ML FINAL: NO GROWTH DAY 2 (<1,000 CFU/mL) ML - [facility] Permit #[id number] [address] [place], [place] [id number] DEPARTMENT OF PATHOLOGY, [address] [place] [address] [facility] Permit #[id number] Getachew Russell M.D. Newspaper Publisher 24 ---- RUN DATE: 11/05/11 [facility] [place] NMI LIVE PAGE 1 RUN TIME: 813 Specimen Inquiry RUN USER: INTERFACE -- Name: BHAVIN GALLEGOS Olivia Status: REG REF Re11/02/11 Age/Sex: 51/M Unit#: [id number] Location: [facility] : 60 -- Specimen: [id number] SOUT Spec Date: 11/02/[address]: Malachi Rodriguez i, MD Spec Type: SURGICAL P Received: 11/03/11 Copies to: Alfredo greer FIELD AIDE SPECIMEN 1) LEFT LOBE PROSTATE BIOPSY APEX (APEX 3) 2) LEFT LOBE PROSTATE BIOPSY BASE (BASE 3) 3) RIGHT LOBE PROSTATE BIOPSY APEX (APEX 3) 4) RIGHT LOBE PROSTATE BIOPSY BASE (BASE 3) HISTORY PRE-OP DIAGNOSIS: PSA elevation and progession. POST-OP DIAGNOSIS: PSA 3.55 GROSS DESCRIPTION 1) The specimen is received in formalin labelled [facility], Left Prostate Lobe [place] and consists of three, crawford, soft tissue cores measuring 1.9 cm., 1.9 cm., and 1.7 x 0.1 cm. Submitted entirely, one cassette. 2) The specimen is received in formalin labelled [facility], Left Prostate Lobe [place] and consists of three, crawford, soft tissue cores measuring 1.3 cm., 1.0 cm., and 1.0 x 0.1 cm. Submitted entirely, one cassette. 3) The specimen is received in formalin labelled [facility], Right Prostate Lobe [place] and consists of three, crawford, soft tissue cores measuring 1.7 cm., 1.5 cm., and 1.5 x 0.1 cm. Submitted entirely, one cassette. 4) The specimen is received in formalin labelled [facility], Right Prostate Lobe Base and consists of three, crawford, soft tissue cores measuring 1.3 cm., 1.0 cm., and 0.9 x 0.1 cm. Submitted entirely, one cassette. DIAGNOSIS 1) Prostate, left apex, core biopsies: A. Prostatic adenocarcinoma, small acinar type: 1. Yoder score: 3 + 3=6. 2. Extent of Local Invasion: Tumor involves two small foci on two of three cores, measures 0.8 mm. in aggregate dimension, and occupies less than 2% of total core length. 3. Perineural Invasion: Not seen. 4. Angiolymphatic Invasion: Not seen. -- DEPARTMENT OF PATHOLOGY, [address] [place] [address] [facility] Permit #[id number] Getachew Russell M.D. Assistant Dir ector -- -- RUN DATE: 11/05/11 [facility] [place] NMI LIVE PAGE 2 RUN TIME: 813 Specimen Inquiry RUN USER: INTERFACE -- Name: BHAVIN GALLEGOS Status: REG REF Re11/02/11 Age/Sex: 51/M Unit#: [id number] Location: [facility] : 60 -- -- CONTINUED -- DIAGNOSIS (Continued) B. Other findings: None. 2) Prostate, left base, core biopsies: A. Benign prostate tissue. B. No evidence of neoplasia identified. 3) Prostate, right apex, core biopsies: A. Prostatic adenocarcinoma, small acinar type: 1. Yoder score: 3 + 4=7. 2. Extent of Local Invasion: Tumor involves four foci on three of three cores, measures 21 mm. in aggregate dimension, and occupies 65% of total core length. 3. Perineural Invasion: Present. 4. Angiolymphatic Invasion: Not seen. B. Other findings: None. 4) Prostate, right base, core biopsies: A. Prostatic adenocarcinoma, small acinar type: 1. Yoder score: 3 + 3=6. 2. Extent of Local Invasion: Tumor involves one focus on one of three cores, measures less than 0.1 mm. in dimension, and occupies less than 1% of total core length. 3. Perineural Invasion: Not seen. 4. Angiolymphatic Invasion: Not seen. B. Other findings: None. COMMENT Dr. Michel has reviewed this case and concurs. Signed Electronically by: HARSHA BIRMINGHAM MD 11/04/11 1348 -- -- DEPARTMENT OF PATHOLOGY, [address] [place] [address] [facility] Permit #[id number] Harsha Birmingham M.D. Director Jewels Michel M.D. Pourer Buggy Ladle Dir morales -- 25 THERAPEUTIC TARGET FOR THE TREATMENT OF DIABETES MELLITUS PATIENTS IS <7% HBA1C, AND IN SELECTIVE PATIENTS <6.0%. PLEASE REFER TO [employer] DIABETIC CARE GUIDELINES FOR FURTHER INFORMATION. 26 Anion gap measurement may be of limited value in the presence of any alkalosis, especially in a combined acid base disorder. . 27 Because ethnic data is not always readily available, this report includes an eGFR for both -Americans and non- Americans. The National Kidney Disease Education Program (NKDEP) does not endorse the use of the MDRD equation for patients that are not between the ages of 18 and 70, are , have extremes of body size, muscle mass, or nutritional status, or are non- or non-. According to the National Kidney Foundation, irrespective of diagnosis, the stage of the disease is based on the level of kidney function: Stage Description GFR(mL/min/1.73 m(2)) 1 Kidney damage with normal or decreased GFR 90 2 Kidney damage with mild decrease in GFR 60-89 3 Moderate decrease in GFR 30-59 4 Severe decrease in GFR 15-29 5 Kidney failure <15 (or dialysis) 28 * SERUM LEVELS OF PSA MEASURED USING THE [employer] ACCESS HYBRITECH IMMUNOASSAY SHOULD NOT BE INTERPRETED ABSOLUTE EVIDENCE OF THE PRESENCE OR ABSENCE OF DISEASE. THE PSA VALUE SHOULD BE USED IN CONJUNCTION WITH OTHER PERTINENT CLINICAL DIAGNOSTIC PROCEDURES. The values obtained with different assay methods or kits cannot be used interchangeably. 29 CHOLESTEROL INTERPRETATION: Desirable: Less than 200 MG/DL Borderline-High Risk: 200-239 MG/DL High-Risk: 240 MG/DL and over 30 HDL INTERPRETATION: Undesirable: High Risk: Less than 40 MG/DL Desirable: Low Risk: Greater than 60 MG/DL 31 UNABLE TO CALCULATE LDL TRIGLYCERIDE IS > 400 32 ---- RUN DATE: 02/08/08 [facility] [place] NMI LIVE PAGE 1 RUN TIME: 1559 Specimen Inquiry RUN USER: INTERFACE -- Name: BHAVIN GALLEGOS Status: REG REF Re02/07/08 Age/Sex: 47/M Unit#: [id number] Location: [facility]. : 60 -- Specimen: [id number] SOUT Spec Date: 02/07/[address]: Maxime lynch MD Spec Type: SURGICAL P Received: 02/07/08-3159 Copies to: Cruz Moore MD SPECIMEN 1) RANDOM COLON BIOPSY 2) BIOPSY POLYP HEPATIC FLEXURE 3) BIOPSY POLYP AT 20 CM. HISTORY POST-OP DIAGNOSIS: Shatski's ring; hiatal hernia; two small polyps CLINICAL INFORMATION: Abdomianl pain; positive family history of polyps GROSS DESCRIPTION 1) The specimen is received in formalin labelled Bhavin Gallegos Random Colon Biopsies, and consists of two, crawford, soft tissue fragments measuring 0.6 x 0.3 x 0.1 cm. Submitted entirely, one cassette. 2) The specimen is received in formalin labelled Bhavin Nathen Gallegos, Biopsy Polyp Hepatic Flexure, and consists of a crawford, soft tissue fragment measuring 0.3 x 0.2 x 0.1 cm. Submitted entirely, one cassette. 3) The specimen is received in formalin labelled Bhavin Nathen Gallegos, Biopsy Polyp at 20 cm., and consists of a crawford, soft tissue fragment measuring 0.3 x 0.2 x 0.1 cm. Submitted entirely, one cassette. DIAGNOSIS 1) Colon, random biopsies - A) Large intestinal mucosa with no significant pathologic abnormality. B) No evidence of microscopic/lymphocytic colitis, collagenous colitis, or other chronic inflammatory bowel process is identified. 2) Colon, hepatic flexure, biopsy - A) Tubular adenoma. B) No high grade dysplasia or malignancy. 3) Colon, 20 cm., biopsy - Hyperplastic polyp. -- DEPARTMENT OF PATHOLOGY, [address] [place] [address] [facility] Permit #[id number] Harsha Birmingham M.D. Director of [employer] -- -- RUN DATE: 02/08/08 [facility] [place] NMI LIVE PAGE 2 RUN TIME: 1559 Specimen Inquiry RUN USER: INTERFACE -- Name: BHAVIN GALLEGOS Status: REG REF Re02/07/08 Age/Sex: 47/M Unit#: [id number] Location: [facility] : 60 -- -- CONTINUED -- Signed Electronically by: HARSHA BIRMINGHAM MD 02/08/08 1558 -- -- DEPARTMENT OF PATHOLOGY, [address] [place] [address], [place] [address] [facility] Permit #[id number] Harsha Birmingham M.D. Director of Laboratories -- 33 CHOLESTEROL INTERPRETATION: Desirable: Less than 200 MG/DL Borderline-High Risk: 200-239 MG/DL High-Risk: 240 MG/DL and over 34 HDL INTERPRETATION: Undesirable: High Risk: Less than 40 MG/DL Desirable: Low Risk: Greater than 60 MG/DL 35 Anion gap measurement may be of limited value in the presence of any alkalosis, especially in a combined acid base disorder. . 36 * SERUM LEVELS OF PSA MEASURED USING THE [employer] ACCESS HYBRITECH IMMUNOASSAY SHOULD NOT BE INTERPRETED ABSOLUTE EVIDENCE OF THE PRESENCE OR ABSENCE OF DISEASE. THE PSA VALUE SHOULD BE USED IN CONJUNCTION WITH OTHER PERTINENT CLINICAL DIAGNOSTIC PROCEDURES. 37 Classification: Borderline High . 38 CALCULATED LDL APPROXIMATES THE VALUE OF A DIRECT LDL MEASUREMENT. Classification: Near or above optimal . 39 Classification: High . 40 CALCULATED LDL APPROXIMATES THE VALUE OF A DIRECT LDL MEASUREMENT. Classification: Near or above optimal . 41 Anion gap measurement may be of limited value in the presence of any alkalosis, especially in a combined acid base disorder. . 42 REFERENCE RANGE FOR TESTOSTERONE FREE MALES: 20-49 YRS . . . . . 0.95-4.30 NG/DL > 50 YRS . . . . . 0.80-3.50 NG/DL FEMALES: OVULATING . . . . UP TO 0.38 NG/DL POSTMENOPAUSAL . . UP TO 0.18 NG/DL 43 TEST PERFORMED BY: [employer] [address] [place] [address] CLIA #[id number] Classification: High . 45 CALCULATED LDL APPROXIMATES THE VALUE OF A DIRECT LDL MEASUREMENT. Classification: Borderline High . Procedures Date CPT Code Description Status Comment 05/03/2013 92416 Nebulizer Treatment Completed 04/17/2013 77931 EKG, at Least 12 Leads Completed w/Interpretation and Report 01/24/2013 Colonoscopy Completed 2 small hyperplastic polyps EGD: erosive gastritis, Schatzki's ring 11/30/2011 89149 EKG, at Least 12 Leads Completed w/Interpretation and Report 02/06/2010 04120 EKG, at Least 12 Leads Completed w/Interpretation and Report 10/08/2009 31214 EKG, at Least 12 Leads Completed w/Interpretation and Report 10/08/2009 55161 EKG, at Least 12 Leads Completed w/Interpretation and Report 10/04/2005 36115 EKG, at Least 12 Leads Completed w/Interpretation and Report Encounters Type Date Location Provider CPT E/M Dx Office Visit 12/26/2017 2:45p Main Office Krissyakshat HernandezISAIAH haley 19963 J10.1 Office Visit 10/06/2017 1:30p Main Office Alfredo Seo ACCOUNTING COORDINATOR-C 76035 G44.011 J01.90 Office Visit 09/29/2017 3:15p Main Office KIANA Hinton-C 48252 J01.90 Office Visit 01/25/2017 1:30p Main Office Nereida Salinas ACCOUNTING COORDINATOR-C 83383 Z00.00 H91.93 G47.30 K22.2 B07.9 Z11.59 Z12.5 Office Visit 09/23/2016 2:15p Main Office Alfredo Seo ACCOUNTING COORDINATOR-C 08748 J06.9 Office Visit 03/09/2016 11:30a Main Office Ha Solo III, ACCOUNTING COORDINATOR-C 87607 K12.2 Office Visit 01/19/2016 10:15a [place] [address] E78.1 R74.0 E78.0 Office Visit 12/19/2015 1:45p [place] [address] L30.9 Office Visit 11/14/2015 3:15p Main Office Alfredo Seo ACCOUNTING COORDINATOR-C 60559 H81.10 Office Visit 10/27/2015 11:15a Main Office Alfredo Seo, ACCOUNTING COORDINATOR-C 91162 J01.90 Office Visit 09/12/2015 2:45p Main Office Alfredo Seo, ACCOUNTING COORDINATOR-C 50159 G43.119 J01.20 Office Visit 06/30/2015 2:30p [place] [address] J06.9 S70.262A Office Visit 01/28/2014 11:15a Main Office Alfredo Seo, ACCOUNTING COORDINATOR-C 79054 465.9 Office Visit 01/25/2014 11:00a Main Office Alfredo Seo, ACCOUNTING COORDINATOR-C 27267 465.9 Office Visit 07/16/2013 2:30p Main Office Alfredo Seo, ACCOUNTING COORDINATOR-C 28704 346.01 Office Visit 05/17/2013 10:30a Main Office Alfredo Seo, ACCOUNTING COORDINATOR-C 89475 466.0 307.42 Office Visit 05/03/2013 3:30p Main Office Alfredo Seo, ACCOUNTING COORDINATOR-C 52027 466.0 Office Visit 04/17/2013 2:30p Main Office Nereida Salinas, ACCOUNTING COORDINATOR-C 34683 786.50 465.9 Office Visit 02/04/2012 11:30a Main Office Bob Cohen M.D. 37746 788.1 Office Visit 11/30/2011 11:15a Main Office Alfredo Seo, ACCOUNTING COORDINATOR-C 28416 V72.83 233.4 Office Visit 11/04/2011 2:15p Main Office Alfredo Seo, ACCOUNTING COORDINATOR-C 89660 346.90 Office Visit 10/04/2011 1:30p Main Office Alfredo Seo, ACCOUNTING COORDINATOR-C 35842 V70.0 346.90 602.8 790.29 V06.1 V04.81 Office Visit 09/29/2011 4:15p Main Office Myla Santiago M.D. 73540 346.90 461.8 Office Visit 08/23/2011 3:15p Main Office Alfredo Seo, ACCOUNTING COORDINATOR-C 88041 346.91 Office Visit 05/12/2010 10:00a Main Office Jeane Sam PA-C 96786 922.1 401.9 Office Visit 02/17/2010 3:45p Main Office Jeane Sam PA-C 51574 274.00 110.4 Office Visit 02/06/2010 8:00a Main Office Jeane Sam PA-C 04380 V70.8 785.1 346.10 401.9 386.10 Office Visit 10/08/2009 11:00a Main Office Echo Cr [facility] 02612 784.0 471.8 Office Visit 10/02/2009 3:15p Main Office Echo Cr [facility] 26700 784.0 Office Visit 03/05/2009 3:30p Main Office Echo [facility] 50854 386.10 796.2 Office Visit 07/24/2008 12:15p Main Office Echo [facility] 65275 346.10 Office Visit 07/08/2008 2:15p Main Office Echo [facility] 77717 530.81 346.10 272.2 Office Visit 06/17/2008 11:45a [facility] 465.9 Office Visit 02/26/2008 11:45a Main Office Echo [facility] 29978 272.0 Office Visit 01/18/2008 12:45p Main Office [facility] 70846 V70.0 346.00 692.6 789.03 600.00 787.91 530.3 307.49 Office Visit 01/16/2008 11:00a Main Office Alfredo Seo [facility] 09020 789.03 Office Visit 09/14/2007 1:15p Main Office Echo Cr [facility] 37519 110.5 216.3 Office Visit 04/06/2007 12:30p Main Office Velma Hillman M.D. 55345 692.6 Office Visit 10/13/2006 1:00p Main Office [facility] 87784 719.47 Office Visit 10/04/2005 1:45p Main Office Cruz Moore M.D. 20873 V70.0 272.0 346.00 401.9 V76.9 Office Visit 09/16/2005 11:15a Main Office [facility] 48900 346.00 Office Visit 12/19/2003 10:30a Main Office Echo Cr [facility] 92446 302.72 272.0 346.00 Office Visit 12/09/2003 10:00a Main Office Echo Cr [facility] 13327 302.72 272.0 786.09 Office Visit 11/18/2003 9:00a Main Office Echo Cr [facility] 85093 786.09 302.72 Office Visit 12/17/2002 8:00a Main Office Nereida Chapman M.D. 49761 V70.0 346.00 272.0 Office Visit 10/16/2002 4:00p Main Office Nereida Chapman M.D. 41470 466.0 346.00 Office Visit 07/27/2002 4:15p [place] [address] 346.00 Office Visit 11/13/2001 11:15a Main Office [facility] 92503 487.8 786.59 Plan of Care 04/04/2018 - Krissy Diaz, [id number] Bitten by dog, initial [id number] Cellulitis of faceComments:Also evaluated by Marlon to location of bite and symptoms, patient sent to ED for further evaluation and treatment. Patient agrees to plan and will go straight to [facility] called to ED by Akua HUDSON
--- NOTE | 2018-04-04 12:07 | ED ---
Bite Injury/Animal - HPI Summary HPI Summary: This patient is a 57 year old M presenting to ED with a chief complaint of dog bite to the L cheek since 2100 last night. The patient woke up this morning with tenderness and swelling to the L cheek and tenderness to the nasal side of the L eye. The patient rates the pain 7/10 in severity. Symptoms aggravated by looking to the left and touch. Symptoms alleviated by nothing. Patient reports SWANSON. Patient denies fever. Treatment of the wound ACID PUMPER was peroxide and a Q-tip with rubbing alcohol. - History of Current Complaint Chief Complaint: EDAnimalBite Stated Complaint: DOG BITE Time Seen by Provider: 04/04/18 11:57 Hx Obtained From: Patient Onset of Injury: Happened hours ago, Still Present Type of Bite: Pet - dog Has Animal Been Immunized?: Unknown Severity Initially: Moderate Severity Currently: Moderate Pain Intensity: 7 Pain Scale Used: 0-10 Numeric Aggravating Factor(s): Other - looking to the left and touch Alleviating Factor(s): Nothing Associated Signs And Symptoms: Negative: Fever - Pt reports SWANSON - Allergies/Home Medications Allergies/Adverse Reactions: Allergies Allergy/AdvReac Type Severity Reaction Status Date / Time Penicillins Allergy Unknown Verified 04/04/18 11:23 Reaction Details PMH/Surg Hx/FS Hx/Imm Hx Endocrine/Hematology History: Denies: Hx Diabetes Cardiovascular History: Denies: Hx Coronary Artery Disease, Hx Hypertension Respiratory History: Reports: Hx Sleep Apnea - evaluation for 11/2013 GI History: Reports: Hx Gastroesophageal Reflux Disease - erosive gastritis, Schatzki's ring History: Reports: Other Problems/Disorders - prostrate adenocarcinoma - cluadine 6 Sensory History: Denies: Hx Legally Blind Opthamlomology History: Denies: Hx Legally Blind Neurological History: Reports: Hx Headaches, Hx Migraine - Cancer History Cancer Type, Location and Year: prostrate adenocarcinoma - Immunization History Date of Influenza Vaccine: never Infectious Disease History: No Infectious Disease History: Denies: Traveled Outside the [place] in Last 30 Days - Family History Known Family History: Negative: Renal Disease, Respiratory Disease, Blood Disorder - Social History Alcohol Use: Daily Alcohol Amount: 4-6 beers, weekends more Substance Use Type: Reports: None Smoking Status (MU): Never Smoked Tobacco Review of Systems Negative: Fever Positive: Other - tender to touch of R side of L eye Positive: Other - tenderness and swelling to the L cheek Positive: Headache All Other Systems Reviewed And Are Negative: Yes Physical Exam - Summary Physical Exam Summary: Appearance: Well-appearing, Well-nourished, lying in bed comfortably Skin: Warm, dry, no obvious rash Eyes: sclera anicteric, no conjunctival pallor, minimal pain with inward gaze, no proptosis, no definite signs of orbital spread. ENT: mucous membranes moist, pharynx appears normal, two small puncture wounds in L cheek, doesnt feel fluctuant, cellulitis with erythema, tender to palpation Neck: Supple, nontender Respiratory: Clear to auscultation, no signs of respiratory distress Cardiovascular: Normal S1, S2. No murmurs. Normal distal pulses in tibial and radial bilaterally. Abdomen: Soft, nontender, normal active bowel sounds present Musculoskeletal: Normal, Strength/ROM Intact Neurological: A&Ox3, awake and alert, mentation is normal, speech is fluent and appropriate Psychiatric: affect is normal, does not appear anxious or depressed Triage Information Reviewed: Yes Vital Signs On Initial Exam: Initial Vitals Temp Pulse Resp BP Pulse Ox 99.0 F 84 14 167/104 100 04/04/18 11:21 04/04/18 11:21 04/04/18 11:21 04/04/18 11:21 04/04/18 11:21 Vital Signs Reviewed: Yes Diagnostics - Vital Signs Vital Signs Temp Pulse Resp BP Pulse Ox 04/04/18 11:21 99.0 F 84 14 167/104 100 - Laboratory Result Diagrams: 04/04/18 12:13 04/04/18 13:43 Lab Statement: Any lab studies that have been ordered have been reviewed, and results considered in the medical decision making process. - CT Maxillofacial CT Interpretation Completed By: Radiologist - LEFT FACIAL SOFT TISSUE SWELLING SUGGESTIVE OF CELLULITIS. THERE IS NO LOCULATED FLUID COLLECTION TO SUGGEST ABSCESS. ED physician has reviewed this radiology report. Re-Evaluation - Re-Evaluation First Eval Re-Evaluation Time: 14:02 Comment: Discussed CT results with the patient and plans for discharge. Bite Injury Course/Dx - Diagnoses Differential Diagnosis/HQI/PQRI: Positive: Cellulitis, Deep Space Infection Provider Diagnosis: Cellulitis, Dog bite Discharge - Sign-Out/Discharge Documenting (check all that apply): Patient Departure - Discharge Plan Condition: Good Disposition: HOME Prescriptions: Doxycycline Hyclate 100 mg PO BID #20 tablet. metroNIDAZOLE [Flagyl 500 MG TAB] 500 mg PO TID #30 tab Morphine Sulfate 15 mg PO Q4HR PRN 2 Days #12 tablet MDD 6 tabs PRN Reason: Pain Patient Education Materials: Animal Bite (ED), Cellulitis (ED) Referrals: Alfredo Seo CANARY RAISER [Primary Care Provider] - - Billing Disposition and Condition Condition: GOOD Disposition: Home
[2018-04-04] MEDS ORDERED: cefTRIAXone(*) 1 GM in NS 0.9% 50 ML* 50 ML IVPB ONE (12:10)
[2018-04-04] MEDS ORDERED: metroNIDAZOLE IV 500 MG/100ML* 500 MG/100 ML BAG IVPB ONE (12:11)
[2018-04-04] MEDS ORDERED: Morphine VIAL* 4 MG/ML VIAL (1 ml vial) IV ONE (12:28)
[2018-04-04] MEDS ORDERED: Morphine ORAL.SOLN 10 mg* 2 MG/ML UDC 5 ml PO ONE (12:30)
[2018-04-04 12:40] LABS: ABS Basophils 0.1 10^3/ul (0-0.2); ABS Eosinophils 0 10^3/ul (0-0.6); ABS Lymphocytes 2.1 10^3/ul (1.0-4.8); ABS Monocytes 0.9 10^3/ul (0-0.8); ABS Neutrophils 11.5 10^3/ul (1.5-7.7); ABS Nucleated RBC 0 10^3/ul; Eosinophil % 0.3 % (0-6); Hematocrit 42 % (42-52); Hemoglobin 14.7 g/dl (14.0-18.0); Lymphocyte % 14.5 % (25-47); Mean Corpuscular HGB Conc 35 g/dl (31-36); Mean Corpuscular Hemoglobin 33 pg (27-31); Mean Corpuscular Volume 95 fL (80-94); Mean Platelet Volume 7.3 um3 (7.4-10.4); Nucleated Red Blood Cells % 0.1; Platelet Count 269 10^3/ul (150-450); Red Blood Count 4.42 10^6/ul (4.00-5.40); Red Cell Distribution Width 14 % (10.5-15); White Blood Count 14.6 10^3/ul (3.5-10.8)
[2018-04-04 12:57] LABS: EGFR Non-African American 94.2 (>60)
[2018-04-04] MEDS ORDERED: Iohexol 300* (CONTRAST) 10 ML SDV IV ONE (13:02)
--- NOTE | 2018-04-04 13:35 | RAD ---
HISTORY: dogbite/cellulitis,?deeper infection/abscess COMPARISONS: None TECHNIQUE: Multiple contiguous axial CT scans were obtained of the face with intravenous contrast, with coronal and sagittal multiplanar reformations. FINDINGS: BONES: There is no displaced fracture or dislocation. The orbital rim is intact. The zygomatic arch is intact. The pterygoid plates are intact. ORBITS: The globes are round. The optic nerves are symmetric. The extraocular musculature is normal. There is no post septal or intraconal inflammatory change. There is no retrobulbar hematoma. PARANASAL SINUSES: There is mucosal thickening of the maxillary sinuses bilaterally. BRAIN AND SOFT TISSUE: Degenerative changes are noted of the spine. There is premaxillary and infraorbital soft tissue swelling without post septal or intraconal extension. There is no loculated fluid collection to suggest abscess. OTHER: None. IMPRESSION: LEFT FACIAL SOFT TISSUE SWELLING SUGGESTIVE OF CELLULITIS. THERE IS NO LOCULATED FLUID COLLECTION TO SUGGEST ABSCESS.
[2018-04-04 14:48] VITALS: BP 150/94
== END 2018-04-04 14:46 | disposition home or self-care (01) ==
LOC: ED 11:18
DX: S01.452A Open bite of left cheek and temporomandibular area, initial encounter (principal); L03.818 Cellulitis of other sites; W54.0XXA Bitten by dog, initial encounter; Y92.9 Unspecified place or not applicable; Z88.0 Allergy status to penicillin
CPT/HCPCS: 36415; 70487; 80048; 85025; 96365; 96375; 99282; A9270-GY; J0696; J3490; Q9967

== ENCOUNTER → 2019-04-19 05:41 | Day surgery (SDC) | payer BC ==
[~2019-04-19 05:41] MED LIST: Buffered Lidocaine 1% SYRIN* 1 ML/SYRINGE INTRADERM ONE; Bupivacaine 0.5%* 50 ML VIAL ONE; Clindamycin 900 MG IVPREMIX(* 900 MG/50 ML SDV IV ONE; Ketorolac INJ* 30 MG/ML 1 ML VIAL ONE; Lactated Ringers 1000 ML Bag* 1,000 ML IV SCH; Lidocaine 1% INJ* 10 MG/ML 30 ML SDV ONE; Lidocaine 2% PF * 5 ML VIAL ONE; Naloxone* 0.4 MG/ML 1 ML VIAL IV PRN; Ondansetron INJ* 2 MG/ML VIAL IV PRN; Propofol* 10 MG/ML 20 ML BTL ONE; Sodium Citrate/Citric Acid* 15 ML UDC ONE; Sodium Citrate/Citric Acid* 15 ML UDC PO ONE; Triamcinolone Acetonide* 40 MG/ML 1 ML VIAL ONE; fentaNYL* 50 MCG/ML 2 ML VIAL (100 MCG VIAL) IV PRN; fentaNYL* 50 MCG/ML 2 ML VIAL (100 MCG VIAL) ONE; oxyCODONE TAB* 5 MG TAB ONE
[2019-04-19 10:40] VITALS: BP 134/93
--- NOTE | 2019-04-19 14:11 | OP ---
Operative Report - Blank - Operative Report Date of Operation: 04/19/19 Note: PATIENT: Kalin Emmanuel DATE OF : 1960 DATE OF SURGERY: 04/19/2019 SURGEON: Rene Akins MD TOUR ESCORT: MOLLY Barton, whos assistance was necessary for positioning, retraction, help with instrumentation, and closure. ANESTHESIOLOGIST: Dr. Dixon PREOPERATIVE DIAGNOSIS: Painful retained right ankle hardware and superficial peroneal nerve neuritis vs. neuroma. 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 OPERATION: 1. Right ankle removal of hardware. 2. Right superficial peroneal nerve surgical release, excision of neuroma, and burial in muscle. 3. Right ankle corticosteroid injection under fluoroscopic guidance. ANESTHESIA: General IMPLANTS: none TOURNIQUET TIME: Less than one hour with a well-padded thigh tourniquet at 250 mmHg SPECIMENS: None ESTIMATED BLOOD LOSS: Minimal COMPLICATIONS: none STATUS: Stable from the operating room to the recovery room and then home. INDICATIONS FOR PROCEDURE: Kalin had a prior Maisonneuve injury s/p ORIF. He has pain from the hardware and burning pain and numbness in the SPN distribution. He also has pain at the right ankle joint. Both operative and non-operative treatment alternatives were reviewed. Further, the nature and risks of surgery were reviewed in careful detail, in the office as well as the pre-operative holding area. Our discussions regarding the risks of surgery included, but were not limited to, infection, wound problems, nerve injury, recurrent neuroma, RSD, persistent symptoms, blood clot, failure of the surgery, need for further surgery and even the remote chance of catastrophic complication, including loss of limb. DESCRIPTION OF PROCEDURE: The patient was seen in the preoperative holding unit and informed written consent was obtained. The appropriate extremity was marked. The patient was then brought to the operating room and carefully positioned on the operating room table. Anesthesia was induced. All bony prominences were padded with great care. A well-padded thigh tourniquet was placed. A chlorhexidine based pre- scrub was performed followed by a chloraprep prep and drape in standard sterile fashion. A surgical safety pause was then conducted in which we confirmed the appropriate patient, extremity, planned procedure, availability of equipment, indication and administration of prophylactic antibiotics, and DVT prophylaxis in the form of a compression boot on the non-surgical extremity. I began with Esmarch exsanguination of the limb and inflated the tourniquet. I utilized the prior longitudinal lateral ankle incision. I extended this proximally and distally. Then carefully dissected down to the plate and screws. The screw heads were exposed and removed. The proximal screw came out in its entirety. I was able to remove half of the distal screw, as I had discussed with him preoperatively. I then removed the plate from the bone. Fluoroscopy was then used to confirm that the hardware was removed. I then used tenotomy scissors to dissect anteriorly to locate the superficial peroneal nerve. The medial dorsal branch was identified and in continuity. I freed this up surgically up to where it pierces the fascia. No constrictions were appreciated. The nerve was nicely released with the tenotomy scissors. The dorsal intermediate branch appeared to have been damaged or even fully transected at the level of the hardware. It was encased in scar tissue. The distal aspect of the nerve was dissected out and sharply transected. I then found the proximal part of the nerve and carefully dissected distally until a neuroma was encountered. This nerve was then sharply transected with a knife proximal to the neuroma. I then dissected out a pocket in the anterior muscle compartment tissue. This was dunked into the muscle and then a 4-0 Monocryl suture was used to close the cleft in the muscle over top of the nerve. The scar tissue between the two ends of the nerve was also excised. I then utilized fluoroscopy to perform a right tibiotalar ankle joint injection with 3 cc of 1% lidocaine and 40 mg of Kenalog. Once the joint was entered the fluid flowed freely and without resistance. Fluoroscopy was used to confirm intra-articular placement. The wound was copiously irrigated and meticulously closed in layers utilizing 3- 0 Monocryl and 3-0 nylon. A sterile dressing was then applied. The patient was then awakened from anesthesia and transferred to the recovery room in stable condition. There were no complications. All needle and sponge counts were correct at the end of the case. ATTESTATION: I attest I was present and scrubbed and performed the critical portions of the procedure myself. POSTOPERATIVE PLAN: Follow-up will be in 2 weeks for likely suture removal.
== END | disposition home or self-care (01) ==
LOC: OR 05:41
PROVIDERS: ATTEND Orthopaedic Surgery
DX: T84.84XA Pain due to internal orthopedic prosthetic devices, implants and grafts, initial encounter (principal); G57.31 Lesion of lateral popliteal nerve, right lower limb; Y83.1 Surgical operation with implant of artificial internal device as the cause of abnormal reaction of the patient, or of later complication, without mention of misadventure at the time of the procedure; E78.5 Hyperlipidemia, unspecified; Z88.0 Allergy status to penicillin; Z85.46 Personal history of malignant neoplasm of prostate
CPT/HCPCS: 76000; 88300; 88302; A9270-GY; J1885; J2704; J3010; J3301; J3490